=== PATIENT | female | born 1965 | race Caucasian/White ===

== ENCOUNTER 2020-12-05 09:10 | Emergency (ER) | payer OTHER ==
[2020-12-05 10:06] LABS: HEMOGLOBIN 14.1 gm/dl (12.3-15.3); RED BLOOD COUNT 4.93 M/UL (4.00-5.10); WHITE BLOOD COUNT 4.7 K/UL (4.5-11.0)
[2020-12-05 10:48] LABS: BUN/CREATININE RATIO 20 (0-10)
== END 2020-12-05 13:30 | disposition home or self-care (01) ==
LOC: ER1 09:10
PROVIDERS: Physician Assistant
DX: R07.2 Precordial pain (principal)
CPT/HCPCS: 71045; 80053; 82550; 82553; 83874; 84484; 85025; 93005; 99285

== ENCOUNTER 2021-11-17 13:22 | Emergency (ER) | payer OTHER | END 2021-11-17 17:43 | disposition home or self-care (01) | LOC: ER1 13:22 | DX: M54.2 Cervicalgia (principal); M54.50 Low back pain, unspecified; Z88.5 Allergy status to narcotic agent; Z88.1 Allergy status to other antibiotic agents; V43.62XA Car passenger injured in collision with other type car in traffic accident, initial encounter; Y92.410 Unspecified street and highway as the place of occurrence of the external cause | CPT/HCPCS: 72125; 72128; 73030; 99284 ==

== ENCOUNTER → 2021-11-21 | Outpatient (CLI) | payer OTHER | LOC: KOH-I 13:53 | DX: S39.9 Unspecified injury of abdomen, lower back, pelvis and external genitals (principal) | CPT/HCPCS: 74176 ==